=== PATIENT | female | born 1955 | race Two or more races ===

== ENCOUNTER 2018-07-02 21:15 | Emergency (ER) | payer MEDICAID ==
[~2018-07-02] VITALS: Ht 165.1 cm; Wt 75.7 kg
[~2018-07-02 21:15] MED LIST: AMOXICILLIN500 MG ORAL; CYCLOBENZAPRINE10 MG ORAL; DICLOFENAC SODI75 MG ORAL; IBUPROFEN600 MG ORAL; NKM; NORCO 5-325 TA1 EACH ORAL; PRILOSEC20 MG ORAL
[2018-07-02 21:35] VITALS: BP 148/88
--- NOTE | 2018-07-02 21:51 | Emergency Room Report ---
History of Present Illness General Chief Complaint: Multiple Trauma/Fall Source: Patient Present Illness HPI Patient presents with bruising of her left upper arm. She fell. She's been able to use her arm without difficulty. There's been swelling in her hand and she had to have her ring cut off. She's not taking blood thinners at this time was taking Motrin. The pain is 8/10 and aching and worse when somebody touches the bruise. The bruise is fairly substantial. The patient denies diabetes. Fall because of loss of balance. No LOC. No head injury. No hip or leg pain. No chest or abdominal pain. No fevers, cough, NVD, dysuria. Allergies: Coded Allergies: No Known Allergies (Unverified , 10/27/13) Patient History Past Medical History: see triage record Social History: Denies: smoking, alcohol use Social History Narrative at home Last Menstrual Period: NA Reviewed Nursing Documentation: PMH: Agreed; PSxH: Agreed Nursing Documentation-PMH Hx Diabetes: Yes - DIET CONTROLLED Hx Neurological Problems: No - ARTHRITIS Review of Systems All Other Systems: negative except mentioned in HPI Physical Exam Vital Signs Date Time Temp Pulse Resp B/P (MAP) Pulse Ox O2 Delivery O2 Flow Rate FiO2 07/02/18 21:26 98.2 65 18 152/96 98 Room Air 98.2 Sp02 EP Interpretation: reviewed, normal General Appearance: well appearing, no apparent distress, GCS 15 Head: normocephalic, atraumatic Eyes: bilateral eye normal inspection, bilateral eye PERRL ENT: hearing grossly normal, normal voice, moist mucus membranes Neck: full range of motion, supple, no bony tend Respiratory: chest non-tender, lungs clear, normal breath sounds, no respiratory distress, speaking full sentences Cardiovascular #1: regular rate, rhythm, edema - L hand Cardiovascular #2: 2+ radial (L) Gastrointestinal: normal inspection, normal bowel sounds, non tender, soft Genitourinary: no CVA tenderness Musculoskeletal: gait/station normal, normal range of motion, no calf tenderness, swelling - L hand, forearm, other - no shoulder, elbow, wrist or hand pain Neurologic: alert, oriented x3, motor strength/tone normal, sensory intact, normal gait Psychiatric: mood/affect normal Skin: hematoma - L upper arm Medical Decision Making Diagnostic Impression: Primary Impression: Hematoma Additional Impression: Contusion of left arm Qualified Codes: S40.022A - Contusion of left upper arm, initial encounter ER Course Patient presents to the hematoma left upper arm. She denies any chest symptomatology. Based on the physical exam x-rays are not indicated. She has edema in her hand and forearm. This is physiologic from the injury. She's been taking Motrin. No imaging studies or labs are indicated. She drove herself here and declines pain medicine. She has taken Vicodin in the past with good results. Sling applied by tech with good position and improvement. Normal neurovasc function. The patient is stable for outpatient observation and treatment Last Vital Signs Date Time Temp Pulse Resp B/P (MAP) Pulse Ox O2 Delivery O2 Flow Rate FiO2 07/02/18 22:00 98.2 76 18 148/88 98 Room Air 98.2 Status: unchanged Disposition: HOME, SELF-CARE Condition: Improved Scripts Hydrocodone Bit/Acetaminophen 5-325* (NORCO 5-325*) 1 Each Tablet 1 TAB ORAL Q6H PRN for For Pain, #10 TAB 0 Refills Prov: Srini Pearson M.D. 07/02/18 Ibuprofen* (MOTRIN*) 600 Mg Tablet 600 MG ORAL Q6H PRN for For Pain, #20 TAB Prov: Srini Pearson M.D. 07/02/18 Srini Pearson M.D. Jul 02, 2018 21:51
[2018-07-02] MEDS ORDERED: NORCO 5-325 TA1 EACH ORAL (21:54)
[2018-07-02] MEDS ORDERED: IBUPROFEN600 MG ORAL (21:54)
[2018-07-02 22:00] VITALS: BP 148/88
== END 2018-07-02 22:00 | disposition home or self-care (01) ==
LOC: EMR 21:53
DX: S40.022A Contusion of left upper arm, initial encounter (principal); W19.XXXA Unspecified fall, initial encounter; Y93.9 Activity, unspecified; Y92.9 Unspecified place or not applicable; E11.9 Type 2 diabetes mellitus without complications
CPT/HCPCS: 99283